=== PATIENT | female | born 1955 | race Caucasian/White ===

== ENCOUNTER 2020-09-06 12:11 | Inpatient (IN) | payer MEDICARE, OTHER ==
[~2020-09-06 12:11] MED LIST: HEPARIN SODIUM 1,000 UN/ML (10ML VL) IV ONE
[2020-09-06] MEDS ORDERED: NITROGLYCERIN SL TABS 0.4 MG TAB SUBLINGUAL STA (12:25)
--- NOTE | 2020-09-06 12:34 | ED ---
Chest Pain HPI - General Chief Complaint: Chest Pain Stated Complaint: Chest Pain Time Seen by Provider: 09/06/20 12:11 Source: patient, EMS, RN notes reviewed Mode of arrival: EMS Limitations: no limitations - History of Present Illness Initial Comments: This is a 64-year-old female with a history of hypothyroidism but no prior history of heart disease who states she was cooking this morning around 10 AM she started developing midsternal chest pain it was sharp in nature radiating to her back and to the left side of her neck. She states she fell he called EMS she was given 4 baby aspirin as a nitroglycerin the pain went from 10/10 down to about 5/10. Nothing seems make the pain better or worse otherwise. No shortness of breath cough chills sweats or other symptoms. MD Complaint: chest pain - Related Data Allergies Allergy/AdvReac Type Severity Reaction Status Date / Time Penicillins Allergy Unknown Verified 09/06/20 12:23 Review of Systems ROS Statement: Those systems with pertinent positive or pertinent negative responses have been documented in the HPI. ROS Other: All systems not noted in ROS Statement are negative. EKG Findings - EKG Results: EKG: interpreted by MARTHA, sinus rhythm (Sinus rhythm a rate of 87. Interval 196 QRS duration 12 QT since QTC of 14/50 to prolonged QT and no definitive acute ST-T wave changes) Past Medical History Past Medical History: Hyperlipidemia, Hypertension, Thyroid Disorder History of Any Multi-Drug Resistant Organisms: None Reported Past Surgical History: Section, Cholecystectomy, Hernia Repair, Orthopedic Surgery Past Psychological History: No Psychological Hx Reported Smoking Status: Never smoker General Exam - General Exam Comments Initial Comments: This is a well-developed obese female who is awake alert oriented 3 Limitations: no limitations General appearance: alert, in no apparent distress Head exam: Present: atraumatic, normocephalic, normal inspection Eye exam: Present: normal appearance, PERRL, EOMI. Absent: scleral icterus, conjunctival injection, periorbital swelling ENT exam: Present: normal exam, mucous membranes moist Neck exam: Present: normal inspection, full ROM, other (No stridor JVD or bruits). Absent: tenderness, meningismus, lymphadenopathy Respiratory exam: Present: normal lung sounds bilaterally. Absent: respiratory distress, wheezes, rales, rhonchi, stridor, chest wall tenderness Cardiovascular Exam: Present: regular rate, normal rhythm, normal heart sounds. Absent: systolic murmur, diastolic murmur, rubs, gallop, clicks GI/Abdominal exam: Present: soft, normal bowel sounds. Absent: distended, tenderness, guarding, rebound, rigid Extremities exam: Present: normal inspection, full ROM, normal capillary refill. Absent: tenderness, pedal edema, joint swelling, calf tenderness Back exam: Present: normal inspection Neurological exam: Present: alert, oriented X3, CN II-XII intact Psychiatric exam: Present: normal affect, normal mood Skin exam: Present: warm, dry, intact, normal color. Absent: rash Course Vital Signs 09/06/20 09/06/20 12:15 13:02 Temperature 97.1 F L Pulse Rate 85 80 Respiratory 18 16 Rate Blood Pressure 147/93 152/95 O2 Sat by Pulse 96 99 Oximetry - Reevaluation(s) Reevaluation #1: 09/06/20 13:14 Repeat EKG shows sinus rhythm 84. Interval to 12 respiration 104 QT since QTC of 460/[address]-T wave no change from the first one Chest Pain MDM - MDM I did review the imaging and report no acute findings. I did discuss findings with patient and with Dr. Abarca who did discuss the case with Dr. Garcia. Patient be admitted for evaluation of chest pain Critical Care Time Critical Care Time: Yes Total Critical Care Time: 31 Critical Care Time: 31 minutes critical care time which includes his presentation with history physical labs x-rays multiple reevaluation the patient discussed with the admitting physician admission orders neck mentation above. Disposition Clinical Impression: Chest pain, Unstable angina pectoris Disposition: ADMITTED IP TO THIS HOSP Condition: Fair Referrals: Casey Arcos DO [Primary Care Provider] - 1-2 days
[2020-09-06 12:36] LABS: Basophils # (A) 0.1 k/uL (0-0.2); Basophils % (A) 1 %; Eosinophils # (A) 0.3 k/uL (0-0.7); Eosinophils % (A) 3 %; HCT 42.1 % (34.0-46.0); HGB 14.4 gm/dL (11.4-16.0); Lymphocytes # (A) 3.1 k/uL (1.0-4.8); Lymphocytes % (A) 30 %; MCH 33.5 pg (25.0-35.0); MCHC 34.2 g/dL (31.0-37.0); Mean Platelet Volume 7.9; Monocytes # (A) 0.4 k/uL (0-1.0); Monocytes % (A) 4 %; Neutrophils # (A) 6.3 k/uL (1.3-7.7); Neutrophils % (A) 61 %; Platelet Count 256 k/uL (150-450); RDW 13.2 % (11.5-15.5); WBC 10.3 k/uL (3.8-10.6)
[2020-09-06] MEDS ORDERED: MORPHINE SULFATE 4 MG/ML SYRINGE IVP STA (12:42)
[2020-09-06 12:46] LABS: ALT 25 U/L (4-34); African American GFR (CKD) >90 (>60 ml/min/1.73 sqM); Albumin 4.4 g/dL (3.5-5.0); Anion Gap 10 mmol/L; Blood Urea Nitrogen 18 mg/dL (7-17); Calcium 9.7 mg/dL (8.4-10.2); Carbon Dioxide 23 mmol/L (22-30); Chloride 104 mmol/L (98-107); Creatine Kinase 54 U/L (30-135); Glucose 268 mg/dL (74-99); Lipase 161 U/L (23-300); Non-African American GFR(CKD) >90 (>60 ml/min/1.73 sqM); Sodium 137 mmol/L (137-145); Total Bilirubin 1.1 mg/dL (0.2-1.3); Total Protein 8.5 g/dL (6.3-8.2)
[2020-09-06 12:48] LABS: D-Dimer 0.4 mg/L FEU (<0.60); INR 0.9 (<1.2); Partial Thromboplastin Time 23.6 sec (22.0-30.0); Prothrombin Time 9.8 sec (9.0-12.0)
[2020-09-06 12:50] LABS: Potassium 4.6 mmol/L (3.5-5.1)
[2020-09-06 12:51] LABS: AST 37 U/L (14-36); Alkaline Phosphatase 151 U/L (38-126); Magnesium 1.7 mg/dL (1.6-2.3)
[2020-09-06] MEDS ORDERED: HEPARIN SODIUM,PORCINE 5,000 UNIT/ML 1 ML VIAL IV PRN (12:55)
[2020-09-06] MEDS ORDERED: NITROGLYCERIN OINT 1 INCH/GM PACKET TOPICAL STA (12:55)
[2020-09-06] MEDS ORDERED: HEPARIN SODIUM,PORCINE 5,000 UNIT/ML 1 ML VIAL IV ONE (12:55)
[2020-09-06] MEDS ORDERED: ATORVASTATIN 80 MG TAB PO STA (12:56)
[2020-09-06] MEDS ORDERED: HEPARIN SOD,PORK IN 0.45% NACL 25,000 UNIT in 0.45% NACL 1 250ML.BAG IV SCH (13:00)
--- NOTE | 2020-09-06 13:06 | XR ---
EXAMINATION TYPE: XR chest 1V portable DATE OF EXAM: 09/06/2020 Comparison: 08/07/2012 Clinical History: 64-year-old female Chest Pain Findings: Heart upper limits of normal in size. Mild patchy right basilar opacity. No other consolidation or pl eural effusion seen. Impression: Mild patchy atelectasis versus early infiltrate at the right base. The former is favored. Clinically correlate.
[2020-09-06] MEDS ORDERED: NITROGLYCERIN SL TABS 0.4 MG TAB SUBLINGUAL PRN (13:15)
[2020-09-06] MEDS: HYDROmorphone 0.5 MG/0.5 ML SYRINGE IVP PRN (15:30)
[2020-09-06] MEDS: METOPROLOL TARTRATE 25 MG TAB PO SCH (18:03)
[2020-09-06] MEDS: NITROGLYCERIN OINT 1 INCH/GM PACKET TOPICAL SCH (18:03)
[2020-09-06] MEDS: SODIUM CHLORIDE 0.9% 1,000 ML IV SCH (21:24)
--- NOTE | 2020-09-06 22:00 | CT ---
EXAM: CT Angiography Chest With Intravenous Contrast CLINICAL HISTORY: ITS.REASON CT Reason: rule out aortic aneurysm TECHNIQUE: Axial computed tomographic angiography images of the chest with intravenous contrast. CTDI is 18.1 mGy and DLP is 1434.2 mGy-cm. This CT exam was performed using one or more of the following dose reduction techniques: automated exposure control, adjustment of the mA and/or kV according to patient size, and/or use of iterative reconstruction technique. MIP reconstructed images were created and reviewed. COMPARISON: Chest x-ray from September 06, 2020 at 1252 hrs. FINDINGS: Pulmonary arteries: The pulmonary arterial tree is well-opacified with contrast. No pulmonary emboli are identified. Aorta: The thoracic aorta is upper normal with the ascending arch measuring up to 3.8 cm. There is no dissection. The descending aorta is nondilated. Lungs: Trace amount of bibasilar subsegmental atelectasis. No acute airspace infiltrate or consolidation. Pleural space: Unremarkable. No significant effusion. No pneumothorax. Heart: The heart size is upper normal. No pericardial effusion is seen. No evidence of RV dysfunction. Bones/joints: Mild to moderate multilevel osteophytosis is seen throughout the thoracic spine. No acute fracture or subluxation is seen. Soft tissues: Unremarkable. Lymph nodes: Unremarkable. No enlarged lymph nodes. Gallbladder and bile ducts: Limited images of the upper abdomen demonstrate previous cholecystectomy. IMPRESSION: The thoracic aorta is upper normal with the ascending arch measuring up to 3.8 cm. There is no dissection. The descending aorta is nondilated. No evidence of pulmonary embolism. No acute airspace infiltrate or consolidation is seen.
--- NOTE | 2020-09-06 22:02 | P.HPIM ---
History of Present Illness This is a pleasant 64 years old female with past medical history of hypertension, hyperlipidemia, hypothyroidism. She is a patient of Dr. Arcos. She Presents because of chest pain which started at 11:00 in the morning as 10/10 in severity o'clock sharp radiating to the back also with some radiation to the left jaw. No associated coughing or dyspnea. No palpitation or dizziness Patient denies smoking, alcohol or illicit drugs. Vitals are stable and patient is afebrile. Labs include an unremarkable CBC, INR, BMP, liver enzymes and lipase. Her d- dimer is negative at 0.40. Chest x-ray: Showed patchy mild right lower lobe atelectasis versus infiltrate EKG showed normal sinus rhythm at 87 bpm with no significant ST T changes, QTC is 542. Patient was already started on heparin drip in the emergency room, also Lipitor and aspirin. She was receiving morphine for pain control which was not good enough so Dilaudid is provided and her chest pain down to 3/10 in severity Review of Systems CONSTITUTIONAL: No fever, no malaise, no fatigue. HEENT: No recent visual problems or hearing problems. Denied any sore throat. CARDIOVASCULAR: No orthopnea, PND, no palpitations, no syncope. PULMONARY: No shortness of breath, no cough, no hemoptysis. GASTROINTESTINAL: No diarrhea, no nausea, no vomiting, no abdominal pain. Normoactive bowel sounds. NEUROLOGICAL: No headaches, no weakness, no numbness. HEMATOLOGICAL: Denies any bleeding or petechiae. GENITOURINARY: Denies any burning micturition, frequency, or urgency. MUSCULOSKELETAL/RHEUMATOLOGICAL: Denies any joint pain, swelling, or any muscle pain. ENDOCRINE: Denies any polyuria or polydipsia. Past Medical History Past Medical History: Hyperlipidemia, Hypertension, Thyroid Disorder History of Any Multi-Drug Resistant Organisms: None Reported Past Surgical History: Section, Cholecystectomy, Hernia Repair, Orthopedic Surgery Past Psychological History: No Psychological Hx Reported Smoking Status: Never smoker Medications and Allergies Home Medications Medication Instructions Recorded Confirmed Type Cholecalciferol [Vitamin D3 (25 1,000 unit PO DAILY 09/06/20 09/06/20 History Mcg = 1000 Iu)] Fish Oil/Dha/Epa [Fish Oil 1,200 1 cap PO DAILY 09/06/20 09/06/20 History mg Fish Oil] Ibuprofen [Motrin Ib] 800 mg PO Q8H PRN 09/06/20 09/06/20 History Levothyroxine Sodium [Synthroid] 50 mcg PO DAILY 09/06/20 09/06/20 History Losartan/Hydrochlorothiazide 1 tab PO DAILY 09/06/20 09/06/20 History [Losartan-Hctz 100-12.5 mg Tab] Simvastatin [Zocor] 20 mg PO HS 09/06/20 09/06/20 History Allergies Allergy/AdvReac Type Severity Reaction Status Date / Time Penicillins Allergy Unknown Verified 09/06/20 13:19 Physical Exam Vitals: Vital Signs Temp Pulse Resp BP Pulse Ox 09/06/20 13:02 80 16 152/95 99 09/06/20 12:15 97.1 F L 85 18 147/93 96 Intake and Output 09/05/20 09/06/20 09/06/20 22:59 06:59 14:59 Other: Weight 145.15 kg GENERAL: The patient is alert and oriented x3, not in any acute distress. Well developed, well nourished. HEENT: Pupils are round and equally reacting to light. EOMI. No scleral icterus. No conjunctival pallor. Normocephalic, atraumatic. No pharyngeal erythema. No thyromegaly. CARDIOVASCULAR: S1 and S2 present. No murmurs, rubs, or gallops. PULMONARY: Chest is clear to auscultation, no wheezing or crackles. ABDOMEN: Soft, nontender, nondistended, normoactive bowel sounds. No palpable organomegaly. MUSCULOSKELETAL: No joint swelling or deformity. EXTREMITIES: No cyanosis, clubbing, or pedal edema. NEUROLOGICAL: Gross neurological examination did not reveal any focal deficits. SKIN: No rashes. No petechiae Results CBC & Chem 7: 09/06/20 12:29 09/06/20 12:29 Labs: Abnormal Lab Results - Last 24 Hours (Table) 09/06/20 Range/Units 12: BUN 18 H (7-17) mg/dL Glucose 268 H (74-99) mg/dL AST 37 H (14-36) U/L Alkaline Phosphatase 151 H (38-126) U/L Total Protein 8.5 H (6.3-8.2) g/dL Assessment and Plan Assessment: Chest pain, rule out cardiac causes. D-dimer is negative Hypertension Hypothyroidism Hyperlipidemia Plan: This is a pleasant 64 years old female who presents with chest pain. Serial troponin. Cardiology consult. Continue with aspirin. Check echocardiogram. Also we will check blood pressure between both sides. Chest x-ray showing heart/mediastinum and the upper limit of normal size. Discussed with the staff about the planned Labs and medication were reviewed.. Continue same treatment. Continue with symptomatic treatment. Resume home medication. Monitor lytes and vitals. DVT and GI prophylaxis. Further recommendations depends on the clinical course of the patient DVT prophylaxis: Patient is already on heparin GI Prophylaxis: Pepcid PT/OT: Pending Prognosis is guarded
[2020-09-06] MEDS ORDERED: IV FLUID CONTINUATION 1,000 ML IV ONE (22:35)
[2020-09-06] MEDS ORDERED: ASPIRIN 325 MG TAB PO ONE (22:38)
[2020-09-06] MEDS ORDERED: MIDAZOLAM 2 MG/2 ML VIAL IVP ONE (22:40)
[2020-09-06] MEDS ORDERED: LIDOCAINE 1% INJ 10MG/ML (20 ML MDV) SQ ONE (22:42)
[2020-09-06] MEDS ORDERED: TICAGRELOR 90 MG TAB PO ONE (23:09)
[2020-09-06] MEDS: NITROGLYCERIN 1000MCG/10ML SYRINGE INTRACORON ONE ×2 (23:15→23:51)
[2020-09-06] MEDS ORDERED: IOPAMIDOL-370 125ML BTL INJ ONE (23:28)
[2020-09-06] MEDS ORDERED: fentaNYL (PF) 50 MCG/ML 2 ML AMP IV ONE (23:30)
[2020-09-06] MEDS ORDERED: IOPAMIDOL-370 100ML BTL INJ ONE (23:55)
[2020-09-07] MEDS ORDERED: ATROPINE SULFATE 0.1 MG/ML 10ML SYRINGE IV PRN (00:01)
[2020-09-07] MEDS ORDERED: MAG HYDROX/AL HYDROX/SIMETH 30 ML CUP PO PRN (00:01)
[2020-09-07] MEDS ORDERED: ZOLPIDEM 5 MG TAB PO PRN (00:01)
[2020-09-07] MEDS ORDERED: RX INFO: IV CONTRAST WAS GIVEN 1 EACH MISC MISCELLANE PRN (00:01)
[2020-09-07] MEDS ORDERED: NITROGLYCERIN SL TABS 0.4 MG TAB SUBLINGUAL PRN (00:01)
--- NOTE | 2020-09-07 00:21 | P.PRCINT ---
Percutaneous Coronary Int. - Percutaneous Coronary Intervention Percutaneous Coronary Intervention: Procedures performed: Left coronary angiography, PCI of mid LAD with 3.0 x 18 mm Xience KURTIS, post dilated with a 4.0 x 8mm NC balloon, kissing balloon of diagonal 1 and LAD with 2.5 x 12mm and 3.5 x 12mm balloons. Procedure performed by: Dr Parminder Pickard DO Indications: Non-STEMI HPI: Patient is a pleasant 64-year-old female who presented with chest pain since this afternoon. Patient was found to have non-STEMI with increasing troponins and persistent chest pain and therefore was taken to the [facility]. A diagnostic heart catheterization was performed by my partner to further assess, please see separate dictation for full details. I was asked to perform intervention to the LAD. Conscious sedation: Conscious sedation was performed under the direct supervion of myself using Versed and Fentanyl for a total of 59 mins. Description of procedure: The risks, benefits and alternatives of heart catheterization and PCI were explained in detail to the patient before the procedure and informed consent was obtained. Patient had diagnostic coronary angiography performed by my partner and was left on the catheterization table. Patient had been prepped and draped in the usual fashion and a 6Fr sheath had been placed in the right femoral artery by my partner. A decision was made to intervene on the LAD. Heparin was given for an ACT greater than 250. A 6Fr CLS 4.0 guide was used to engage the left main. A 0.014 BMW wire was placed in the distal vessel. Next predilation was performed using a 2.5 x 12 mm balloon. The lesion was just at distal edge of the diagonal takeoff and appeared to have some involvement of the distal edge of the diagonal. Therefore the decision was made to stent over the diagonal. A 3.0 x 18 mm Xience KURTIS stent was then placed. The proximal and mid portion of the stent was postdilated with a 4.0 x 8 mm noncompliant balloon. Angiograms were obtained in multiple views. There was "pinching" of the diagonal 1, likely representing shifting plaque however there appeared to be KARLY 2-3 flow and patient was still having chest pain. Therefore the decision was made to perform kissing balloons of the diagonal branch. A second BMW wire was advanced into the diagonal branch. Initial prolonged balloon angioplasty was performed at the diagonal 1 origin with a 2.5 x 12 mm balloon. Finally kissing balloon was performed with a 2.5 x 12 mm balloon in the diagonal 1 branch and a 3.5 x 12 mm balloon in the LAD. Nitroglycerin was given. Pre intervention there was 100 % stenosis and KARLY 0 flow and post intervention there was <10% residual stenosis and KARLY 3 flow and no evidence of any dissection. Patient was noted to be chest pain-free. The wire was then removed and final angiograms were obtained. A right femoral angiogram was performed which showed anatomy unfavorable for closure. The sheath was sutured in place to be pulled on the floor. The patient tolerated the procedure well. The patient was transferred to the post catheterization holding area in stable condition. Conclusions: 1. Successful PCI of mid LAD with 3.0 x 18 mm Xience KURTIS, post dilated with a 4.0 x 8mm NC balloon, kissing balloon of diagonal 1 and LAD with 2.5 x 12mm and 3.5 x 12mm balloons. Plan: 1. Aggressive risk factor modifications per most recent ACC/AHA guidelines. 2. Continue dual antiplatelets for 12 months.
[2020-09-07] MEDS: NITROGLYCERIN OINT 1 INCH/GM PACKET TOPICAL SCH ×2 (00:59→05:14)
[2020-09-07] MEDS: HYDROmorphone 0.5 MG/0.5 ML SYRINGE IVP PRN (03:24)
[2020-09-07] MEDS: SODIUM CHLORIDE 0.9% 1,000 ML IV SCH ×3 (03:27→20:51)
[2020-09-07 08:15] LABS: Basophils % (A) 0 %; Eosinophils # (A) 0.1 k/uL (0-0.7); Eosinophils % (A) 1 %; HCT 37.9 % (34.0-46.0); HGB 12.2 gm/dL (11.4-16.0); Lymphocytes # (A) 2.3 k/uL (1.0-4.8); Lymphocytes % (A) 18 %; MCH 31.8 pg (25.0-35.0); MCHC 32.1 g/dL (31.0-37.0); MCV 98.9 fL (80.0-100.0); Mean Platelet Volume 7.8; Monocytes % (A) 8 %; Neutrophils # (A) 9.1 k/uL (1.3-7.7); Neutrophils % (A) 72 %; Platelet Count 257 k/uL (150-450); RBC 3.84 m/uL (3.80-5.40); RDW 13.7 % (11.5-15.5); WBC 12.6 k/uL (3.8-10.6)
[2020-09-07 08:29] LABS: Cholesterol 188 mg/dL (<200); HDL Cholesterol 47 mg/dL (40-60); LDL Cholesterol,Calculated 110 mg/dL (0-99); Triglycerides 154 mg/dL (<150)
[2020-09-07] MEDS: ASPIRIN 81 MG PO SCH (08:57)
[2020-09-07] MEDS: TICAGRELOR 90 MG TAB PO SCH ×2 (08:57→20:51)
[2020-09-07] MEDS: METOPROLOL TARTRATE 25 MG TAB PO SCH ×2 (08:57→20:52)
[2020-09-07] MEDS ORDERED: ASPIRIN 325 MG TAB PO SCH (09:00)
--- NOTE | 2020-09-07 11:10 | CONS ---
CONSULTATION DATE OF SERVICE: 09/06/2020 CHIEF COMPLAINT: Chest pain. HISTORY OF PRESENT ILLNESS: Marce is a 64-year-old lady who presented to the hospital around 12 o'clock in the afternoon with precordial chest pain. She describes it as a moderate to severe intensity precordial chest pressure that came on at rest with radiation to her jaw and back. Her initial troponin was 0.013. The 2nd troponin was 0.3 and the 3rd troponin around 6:30 in the evening was 3.1. I received a phone call from the nurse taking care of the patient from the floor and informed me of the patient's admission and the consultation around 8 o'clock in the night. The patient at that time was having a CT scan of the chest ordered by the primary care physician to rule out dissection. I asked nurse to activate the rn labor and delivery, given the persistent chest pain and elevated troponins and I saw the patient in the rn labor and delivery for the 1st time. She seemed comfortable at rest and was hemodynamically stable, but still had 3/10 intensity chest pain on heparin and nitrates. The patient's EKG revealed sinus rhythm with nonspecific ST-T wave changes without significant ST-segment elevation. Her clinical presentation is consistent with acute non ST-segment elevation [place]. The patient was advised to undergo cardiac catheterization emergently with a view to performing angioplasty. She had been explained of risks, benefits and alternatives. There is no prior history of coronary artery disease or congestive heart failure. FAMILY HISTORY: Significant for coronary artery disease. HOME MEDICATIONS: Include Zocor, Synthroid, Motrin, vitamin D, and losartan. ALLERGIES: PENICILLIN. PAST MEDICAL HISTORY: Significant for hypertension, hypothyroidism, and dyslipidemia. REVIEW OF SYSTEMS: HEENT is unremarkable. Cardiac as described above, respiratory as described above ,GI negative. Genitourinary negative. Allergy/immunology negative. Skin negative. Musculoskeletal negative. Endocrine negative. Derm negative. Constitutional and oncological negative, [employer]CH[employer] negative. Rest of the system review is not relevant. PHYSICAL EXAM: Afebrile, heart rate is 90 beats per minute. Blood pressure is 108/70, respiratory rate is 18. O2 saturation is 97% on 2 L. There is no jugular venous distention. Chest exam reveals good air entry bilaterally. Heart exam reveals first and second heart sounds. No gallop. No murmur. No rub. Abdomen is soft, nontender. Exam of extremities did not reveal any edema. Peripheral pulses are felt. LABS: Show a hemoglobin of 12.2, platelet count is 257. Potassium is 4.6, creatinine is 0.6. Troponins are elevated. Total cholesterol is 188, LDL is 110. ASSESSMENT: Acute non ST-segment elevation myocardial infarction. PLAN: Patient will undergo emergent cardiac catheterization and will decide on further course of action based on the findings. MMTIFFANIEL / ZHANGN: [id number] /
--- NOTE | 2020-09-07 11:14 | CC ---
CARDIAC CATHETERIZATION REPORT INDICATION: Acute non ST-segment elevation myocardial infarction. PROCEDURE NOTE: After obtaining informed consent, left heart catheterization and coronary angiogram were performed via the right femoral artery using standard Nava catheters. Patient tolerated the procedure well without any obvious immediate complications. This was a technically challenging cardiac catheterization because of difficulties with the hemodynamics. ANESTHESIA: The patient received moderate conscious sedation. Total sedation time was 24 minutes. FINDINGS: HEMODYNAMICS: Left ventricular end-diastolic pressure is around 18 mm. There is no significant gradient across the aortic valve. LEFT VENTRICULOGRAM: Not performed. ANGIOGRAPHIC DATA: Left main coronary artery: Left main coronary artery is a normal-sized vessel and is free of stenosis. Divides into left anterior descending coronary artery and circumflex coronary artery. LAD gives off a large diagonal branch. The mid LAD appeared completely occluded. Circumflex coronary artery and its branches are free of significant stenosis. Right coronary artery shows mild nonobstructive plaque in the proximal portion. CONCLUSIONS: Completely occluded mid left anterior descending. PLAN: Patient will undergo angioplasty with stent placement of the same. MMODL / IJN: [id number] /
--- NOTE | 2020-09-07 11:37 | P.PN ---
Objective - Vital Signs Vital signs: Vital Signs Temp 98.0 F 09/07/20 04:15 Pulse 91 09/07/20 05:15 Resp 18 09/07/20 05:15 BP 108/71 09/07/20 05:15 Pulse Ox 97 09/07/20 09:37 Intake & Output 09/06/20 09/07/20 09/07/20 18:59 06:59 18:59 Intake Total 240 322.216 Balance 240 322.216 Weight 145.15 kg Intake: IV 200 Intake, IV Titration 122.216 Amount Heparin Sod,Pork in 0.45% 122.216 NaCl 25,000 unit In 0.45 % NaCl 1 250ml.bag @ 6.89 UNITS/KG/HR 10.001 mls/ hr IV .Q24H [facility] Rx#: [id number] Oral 240 Other: Voiding Method Bedpan # Voids 1 - Labs CBC & Chem 7: 09/07/20 07:01 09/06/20 12:29 Labs: Abnormal Lab Results - Last 24 Hours (Table) 09/06/20 09/06/20 09/06/20 Range/Units 12:29 14:45 18:36 WBC (3.8-10.6) k/uL Neutrophils # (1.3-7.7) k/uL APTT 50.4 H (22.0-30.0) sec BUN 18 H (7-17) mg/dL Glucose 268 H (74-99) mg/dL AST 37 H (14-36) U/L Alkaline Phosphatase 151 H (38-126) U/L Troponin I 0.338 H* (0.000-0.034) ng/mL Total Protein 8.5 H (6.3-8.2) g/dL Triglycerides (<150) mg/dL LDL Cholesterol, Calc (0-99) mg/dL 09/06/20 09/07/20 09/07/20 Range/Units 18:36 07:01 07:01 WBC 12.6 H (3.8-10.6) k/uL Neutrophils # 9.1 H (1.3-7.7) k/uL APTT (22.0-30.0) sec BUN (7-17) mg/dL Glucose (74-99) mg/dL AST (14-36) U/L Alkaline Phosphatase (38-126) U/L Troponin I 3.190 H* (0.000-0.034) ng/mL Total Protein (6.3-8.2) g/dL Triglycerides 154 H (<150) mg/dL LDL Cholesterol, Calc 110 H (0-99) mg/dL Assessment and Plan Assessment: None STEMI, status post coronary artery cath and PCI of the LAD mild leukocytosis, reactive Hypertension Hypothyroidism Hyperlipidemia Plan: This is a pleasant 64 years old female who presents with non-STEMI, status post stent placement. Continue with cardiology team recommendation Continue with aspirin and brillinta , importance of compliance is explained for the patient.. Check echocardiogram. Labs and medication were reviewed.. Continue same treatment. Continue with symptomatic treatment. Resume home medication. Monitor lytes and vitals. DVT and GI prophylaxis. Further recommendations depends on the clinical course of the patient DVT prophylaxis: Patient is already on sc heparin GI Prophylaxis: Pepcid
--- NOTE | 2020-09-07 13:05 | PN ---
PROGRESS NOTE Marce is a 74-year-old lady who is admitted to the hospital yesterday with acute non ST-segment elevation GA and underwent cardiac catheterization and angioplasty with an acutely occluded mid LAD. This morning she is doing well and is free of symptoms. EXAM: At rest: Vital signs are stable. Chest exam reveals good air entry bilaterally. Heart exam reveals first and second heart sounds. No murmur. Abdomen is soft. Exam of extremities did not reveal any edema. Groin is free of bleeding, bruit and hematoma. Foot pulses are intact. LABS: Show that the hemoglobin is 12.2, platelet count is 257. Potassium is 4.6, creatinine is 0.6. Lipids show an LDL cholesterol of 110. ASSESSMENT: Acute non ST-segment elevation myocardial infarction status post catheterization and angioplasty of LAD with stent placement. PLAN: Patient is on aspirin, Lopressor 25 b.i.d., nitroglycerin paste, which I am going to stop and Brilinta 90 b.i.d. and I will obtain a 2D echo and if she has LV systolic dysfunction, we will start her on VINEET inhibitor and if she tolerates the VINEET inhibitor well, we will consider adding a small dose of Aldactone also. MMODL / IJN: [id number] /
[2020-09-07] MEDS: HEPARIN SODIUM,PORCINE 5,000 UNIT/ML 1 ML VIAL SQ SCH ×2 (13:07→20:51)
[2020-09-07 13:24] LABS: Hemoglobin A1C 7.4 % (4.0-6.0)
--- NOTE | 2020-09-07 15:37 | ECHOF ---
Referral Reason:post-cath MEASUREMENTS -------- HEIGHT: 167.6 cm WEIGHT: 145.1 kg BP: 108/71 RVIDd: 3.4 cm (< 3.3) IVSd: 1.4 cm (0.6 - 1.1) LVIDd: 4.3 cm (3.9 - 5.3) LVPWd: 1.4 cm (0.6 - 1.1) IVSs: 1.6 cm LVIDs: 3.2 cm LVPWs: 1.8 cm LAESV Index (A-L): 19.47 ml/m Ao Diam: 3.1 cm (2.0 - 3.7) AV Cusp: 2.0 cm (1.5 - 2.6) LA Diam: 4.3 cm (2.7 - 3.8) MV EXCURSION: 16.541 mm (> 18.000) MV EF SLOPE: 54 mm/s (70 - 150) EPSS: 0.5 cm MV E Adán: 0.74 m/s MV DecT: 196 ms MV A Adán: 0.98 m/s MV E/A Ratio: 0.76 RAP: 5.00 mmHg RVSP: 33.39 mmHg FINDINGS -------- Sinus rhythm. This was a technically difficult study with suboptimal apical views. Patient is post cardiac catheterization and cannot be in left lateral position. The left ventricular size is normal. There is moderate concentric left ventricular hypertrophy. O verall left ventricular systolic function is mildly impaired with, an EF between 45 - 50 %. Mid ant eroseptal LV wall motion is hypokinetic. Apical lateral LV wall motion is hypokinetic. Apical i nferior LV wall motion is hypokinetic. Apical septum LV wall motion is hypokinetic. The right ventricle is mildly enlarged. Normal LA size by volume 22+/-6 ml/m2. The right atrial size is normal. 5.0mg of Lumason was utilized for enhancement of images Interatrial and interventricular septum intact. There is no evidence of aortic regurgitation. There is no evidence of aortic stenosis. There is trace to mild mitral regurgitation. Mild tricuspid regurgitation present. There is no evidence of pulmonary hypertension. The right v entricular systolic pressure, as measured by Doppler, is 33.39mmHg. There is no pulmonic regurgitation present. The aortic root size is normal. IVC Not well visulized. There is no pericardial effusion. CONCLUSIONS -------- 1. The left ventricular size is normal. 2. There is moderate concentric left ventricular hypertrophy. 3. Overall left ventricular systolic function is mildly impaired with, an EF between 45 - 50 %. 4. Mid anteroseptal LV wall motion is hypokinetic. 5. Apical lateral LV wall motion is hypokinetic. 6. Apical inferior LV wall motion is hypokinetic. 7. Apical septum LV wall motion is hypokinetic. 8. The right ventricle is mildly enlarged. 9. There is trace to mild mitral regurgitation. 10. Mild tricuspid regurgitation present. APPRISE COUNSELOR: Linda Lowe RDCS
[2020-09-08] MEDS: SODIUM CHLORIDE 0.9% 1,000 ML IV SCH ×2 (05:42→16:43)
[2020-09-08] MEDS: HYDROmorphone 0.5 MG/0.5 ML SYRINGE IVP PRN (05:43)
[2020-09-08] MEDS: METOPROLOL TARTRATE 25 MG TAB PO SCH ×2 (09:24→20:18)
[2020-09-08] MEDS: TICAGRELOR 90 MG TAB PO SCH ×2 (09:24→20:18)
[2020-09-08] MEDS: ASPIRIN 81 MG PO SCH (09:24)
[2020-09-08] MEDS: HEPARIN SODIUM,PORCINE 5,000 UNIT/ML 1 ML VIAL SQ SCH ×2 (09:25→20:19)
[2020-09-08 09:35] LABS: Basophils % (A) 0 %; Eosinophils # (A) 0.3 k/uL (0-0.7); Eosinophils % (A) 3 %; HCT 32.7 % (34.0-46.0); HGB 10.9 gm/dL (11.4-16.0); Lymphocytes # (A) 2.7 k/uL (1.0-4.8); Lymphocytes % (A) 29 %; MCH 32.7 pg (25.0-35.0); MCHC 33.4 g/dL (31.0-37.0); MCV 97.9 fL (80.0-100.0); Mean Platelet Volume 7.7; Monocytes # (A) 0.5 k/uL (0-1.0); Monocytes % (A) 6 %; Neutrophils # (A) 5.5 k/uL (1.3-7.7); Neutrophils % (A) 60 %; Platelet Count 215 k/uL (150-450); RBC 3.34 m/uL (3.80-5.40); RDW 13.5 % (11.5-15.5); WBC 9.2 k/uL (3.8-10.6)
[2020-09-08 09:44] LABS: African American GFR (CKD) >90 (>60 ml/min/1.73 sqM); Anion Gap 3 mmol/L; Blood Urea Nitrogen 13 mg/dL (7-17); Calcium 8.6 mg/dL (8.4-10.2); Carbon Dioxide 28 mmol/L (22-30); Chloride 105 mmol/L (98-107); Glucose 208 mg/dL (74-99); Non-African American GFR(CKD) >90 (>60 ml/min/1.73 sqM); Potassium 3.7 mmol/L (3.5-5.1); Sodium 136 mmol/L (137-145)
--- NOTE | 2020-09-08 12:02 | XR ---
EXAMINATION TYPE: XR chest 2V DATE OF EXAM: 09/08/2020 COMPARISON: 09/06/2020 HISTORY: 64-year-old female congestion and asthma TECHNIQUE: PA and lateral views FINDINGS: Heart upper limits of normal in size. Mild interstitial prominence and mild peribronchial cuffing. No consolidation or pleural effusion. IMPRESSION: Findings may reflect bronchitis or chronic asthma. No focal infiltrate.
--- NOTE | 2020-09-08 12:04 | P.PN ---
Subjective Progress Note Date: 09/08/20 HISTORY OF PRESENT ILLNESS: Patient is status post cardiac catheterization with stent placement to the mid LAD. Patient examined with bedside. She denies chest pain or pressure. She denies shortness of breath. Echocardiogram completed revealed ejection fraction 45-50%. Blood pressure this morning 97/65. Heart rate in the 80s. PHYSICAL EXAM: VITAL SIGNS: Reviewed. GENERAL: Well-developed in no acute distress. NECK: Supple. No JVD or thyromegaly LUNGS: Respirations even and unlabored. Lungs essentially clear to auscultation bilaterally. HEART: Regular rate and rhythm. S1 and S2 heard. EXTREMITIES: Normal range of motion. No clubbing or cyanosis. Peripheral pulses intact. No lower extremity edema. Right groin soft with no hematoma present. Pulse palpable. ASSESSMENT: Non-ST elevated myocardial infarction status post PCI to mid LAD Ischemic cardiomyopathy, EF 45% Hypertension Hyperlipidemia Hypothyroidism PLAN: Continue current cardiac medications Lisinopril 2.5 mg daily Anticipate discharge home tomorrow if patient remains stable Nurse practitioner note has been reviewed by physician. Signing provider agrees with the documented findings, assessment, and plan of care. Objective - Vital Signs Vital signs: Vital Signs Temp 97.8 F 09/08/20 08:00 Pulse 84 09/08/20 08:00 Resp 18 09/08/20 08:00 BP 97/65 09/08/20 08:00 Pulse Ox 97 09/08/20 08:00 Intake & Output 09/07/20 09/08/20 09/08/20 18:59 06:59 18:59 Intake Total 480 500 240 Balance 480 500 240 Weight 145.15 kg 144.6 kg Intake: Intake, IV Titration 300 Amount Sodium Chloride 0.9% 1, 300 000 ml @ 100 mls/hr IV . Q10H MIRANDA Rx#:[id number] Oral 480 200 240 Other: Voiding Method Bedpan # Voids 3 - Labs CBC & Chem 7: 09/08/20 09:18 09/08/20 09:18 Labs: Abnormal Lab Results - Last 24 Hours (Table) 09/07/20 09/08/20 09/08/20 Range/Units 07:01 09:18 09:18 RBC 3.34 L (3.80-5.40) m/uL Hgb 10.9 L (11.4-16.0) gm/dL Hct 32.7 L (34.0-46.0) % Sodium 136 L (137-145) mmol/L Glucose 208 H (74-99) mg/dL Hemoglobin A1c 7.4 H (4.0-6.0) %
[2020-09-08 12:09] LABS: Glucose,Whole Blood 121 mg/dL (75-99)
[2020-09-08] MEDS ORDERED: predniSONE 20 MG TAB PO STA (12:15)
--- NOTE | 2020-09-08 12:17 | P.PN ---
Subjective History of Present Illness This is a pleasant 64 years old female with past medical history of hypertension, hyperlipidemia, hypothyroidism. She is a patient of Dr. Arcos. She Presents because of chest pain which started at 11:00 in the morning as 10/10 in severity o'clock sharp radiating to the back also with some radiation to the left jaw. No associated coughing or dyspnea. No palpitation or dizziness Patient denies smoking, alcohol or illicit drugs. Vitals are stable and patient is afebrile. Labs include an unremarkable CBC, INR, BMP, liver enzymes and lipase. Her d- dimer is negative at 0.40. Chest x-ray: Showed patchy mild right lower lobe atelectasis versus infiltrate EKG showed normal sinus rhythm at 87 bpm with no significant ST T changes, QTC is 542. 09/07/2020 Patient is a status post PCI and stent placement to the LAD, done urgently last night, this morning patient is feels better with no chest pain. No coughing, no abdominal pain or nausea vomiting. No other complaint Her CTA of the chest was negative for aortic aneurysm Patient was placed on aspirin and brilinta electromyographic technician Echocardiogram is pending Her hemoglobin A1c is elevated at 7.4% and patient was started on the glipizide. 09/08/2020 Patient is awake and alert. No chest pain. She only have some dry cough this morning, she thinks she has some dyspnea but she stated in bed with no tachypnea currently and she was advised to move around. Patient thinks she has asthma exacerbation No other complaint and she tolerates diet well. Hemodynamically stable, blood pressure is 97/65, however electromyographic technician added metoprolol and VINEET inhibitor in view of her low ejection fraction of 45-50% with wall hypokinesia Labs from today looks normal, with normal creatinine is 0.5. Chest x-ray: Showed mild interstitial prominence and mild peribronchial cuffing, findings may reflect bronchitis or chronic asthma. Patient informed about her new diagnosis of diabetes and hemoglobin A1c is 7.4%, she says entrance in the family. Accu-Chek. Patient is started on glipizide small CONSTITUTIONAL: No fever, no malaise, no fatigue. HEENT: No recent visual problems or hearing problems. Denied any sore throat. CARDIOVASCULAR: No orthopnea, PND, no palpitations, no syncope. PULMONARY: No shortness of breath, no cough, no hemoptysis. GASTROINTESTINAL: No diarrhea, no nausea, no vomiting, no abdominal pain. Normoactive bowel sounds. NEUROLOGICAL: No headaches, no weakness, no numbness. Active Medications Generic Name Dose Route Start Last Admin Trade Name Freq PRN Reason Stop Dose Admin Al Hydroxide/Mg Hydroxide 30 ml 09/07/20 00:01 Mag Hydrox/Al Hydrox/Simeth 30 Ml Cup PO Q4HR PRN Heartburn Aspirin 81 mg 09/07/20 09:00 09/08/20 09:24 Aspirin 81 Mg PO 81 mg DAILY MIRANDA Administration Atropine Sulfate 0.5 mg 09/07/20 00:01 Atropine Sulfate 0.1 Mg/Ml 10ml Syringe IV ONCE PRN Symptomatic Bradycardia Budesonide/Formoterol Fumarate 2 puff 09/08/20 12:15 Symbicort 160-4.5 Mcg Inhaler INHALATION RT-BID MIRANDA Glipizide 2.5 mg 09/08/20 07:30 09/08/20 07:09 Glipizide 2.5 Mg Tab PO 2.5 mg AC-BRKFST MIRANDA Administration Heparin Sodium (Porcine) 5,000 unit 09/07/20 10:30 09/08/20 09:25 Heparin Sodium,Porcine 5,000 Unit/Ml 1 Ml Vial SQ 5,000 unit Q12HR MIRANDA Administration Hydromorphone HCl 0.5 mg 09/06/20 15:13 09/08/20 05:43 Hydromorphone 0.5 Mg/0.5 Ml Syringe IVP 0.5 mg Q3HR PRN Administration Pain Sodium Chloride 1,000 mls @ 100 mls/hr 09/06/20 13:15 09/08/20 05:42 Saline 0.9% IV 100 mls/hr .Q10H MIRANDA Administration Insulin Aspart 0 unit 09/08/20 12:30 Insulin Aspart (Novolog) 100 Unit/Ml Vial SQ ACHS [facility] Protocol Lisinopril 2.5 mg 09/08/20 11:00 Lisinopril 2.5 Mg Tab PO DAILY MIRANDA Metoprolol Tartrate 25 mg 09/06/20 18:00 09/08/20 09:24 Metoprolol Tartrate 25 Mg Tab PO 25 mg BID MIRANDA Administration Miscellaneous Information 1 each 09/07/20 00:01 Rx Info: Iv Contrast Was Given 1 Each Misc MISCELLANE 09/09/20 00:01 DAILY PRN Per Protocol Nitroglycerin 0.4 mg 09/06/20 13:15 Nitroglycerin Sl Tabs 0.4 Mg Tab SUBLINGUAL Q5M PRN Chest Pain Nitroglycerin 0.4 mg 09/07/20 00:01 Nitroglycerin Sl Tabs 0.4 Mg Tab SUBLINGUAL Q5M PRN Chest Pain Prednisone 30 mg 09/08/20 12:15 Prednisone 10 Mg Tab PO 09/08/20 12:16 ONCE STA Prednisone 40 mg 09/08/20 12:15 Prednisone 20 Mg Tab PO 09/08/20 12:16 ONCE STA Ticagrelor 90 mg 09/07/20 09:00 09/08/20 09:24 Ticagrelor 90 Mg Tab PO 90 mg BID MIRANDA Administration Zolpidem Tartrate 5 mg 09/07/20 00:01 Zolpidem 5 Mg Tab PO HS PRN Insomnia Objective - Vital Signs Vital signs: Vital Signs Temp 97.8 F 09/08/20 08:00 Pulse 84 09/08/20 08:00 Resp 18 09/08/20 08:00 BP 97/65 09/08/20 08:00 Pulse Ox 97 09/08/20 08:00 Intake & Output 09/07/20 09/08/20 09/08/20 18:59 06:59 18:59 Intake Total 480 500 240 Balance 480 500 240 Weight 145.15 kg 144.6 kg Intake: Intake, IV Titration 300 Amount Sodium Chloride 0.9% 1, 300 000 ml @ 100 mls/hr IV . Q10H MIRANDA Rx#:[id number] Oral 480 200 240 Other: Voiding Method Bedpan # Voids 3 - Exam -GENERAL: The patient is alert and oriented x3, not in any acute distress. Obese HEENT: Pupils are round and equally reacting to light. EOMI. No scleral icterus. No conjunctival pallor. Normocephalic, atraumatic. No pharyngeal erythema. No thyromegaly. CARDIOVASCULAR: S1 and S2 present. No murmurs, rubs, or gallops. PULMONARY: Chest is clear to auscultation, no wheezing or crackles. ABDOMEN: Soft, nontender, nondistended, normoactive bowel sounds. No palpable organomegaly. MUSCULOSKELETAL: No joint swelling or deformity. EXTREMITIES: No cyanosis, clubbing, or pedal edema. NEUROLOGICAL: Gross neurological examination did not reveal any focal deficits. SKIN: No rashes. no petechiae. - Labs CBC & Chem 7: 09/08/20 09:18 09/08/20 09:18 Labs: Abnormal Lab Results - Last 24 Hours (Table) 09/07/20 09/08/20 09/08/20 Range/Units 07:01 09:18 09:18 RBC 3.34 L (3.80-5.40) m/uL Hgb 10.9 L (11.4-16.0) gm/dL Hct 32.7 L (34.0-46.0) % Sodium 136 L (137-145) mmol/L Glucose 208 H (74-99) mg/dL Hemoglobin A1c 7.4 H (4.0-6.0) % Assessment and Plan Assessment: None STEMI, status post coronary artery cath and PCI of the LAD Ischemic cardiomyopathy with ejection fraction of 45-50% New-onset diabetes, patient informed Mild asthma exacerbation, we will start on inhaled and systemic steroids and with bronchodilator mild leukocytosis, reactive. Back to normal Hypertension Hypothyroidism Hyperlipidemia Plan: This is a pleasant 64 years old female who presents with non-STEMI, status post stent placement. Continue with cardiology team recommendation Continue with aspirin and brillinta , importance of compliance is explained for the patient. Continue with the glipizide and Accu-Chek. And inhaled steroids and prednisone. Labs and medication were reviewed.. Continue same treatment. Continue with symptomatic treatment. Resume home medication. Monitor lytes and vitals. DVT and GI prophylaxis. Further recommendations depends on the clinical course of the patient DVT prophylaxis: Patient is already on sc heparin GI Prophylaxis: Pepcid
[2020-09-08] MEDS ORDERED: IPRATROPIUM-ALBUTEROL 3 ML NEB INHALATION PRN (12:18)
[2020-09-08] MEDS: SYMBICORT 160-4.5 MCG INHALER INHALATION SCH ×2 (12:44→19:16)
[2020-09-08] MEDS: INSULIN ASPART (NovoLOG) 100 UNIT/ML VIAL SQ SCH ×3 (12:57→20:18)
[2020-09-08 13:38] VITALS: BMI 51.4
[2020-09-08 17:01] LABS: Glucose,Whole Blood 234 mg/dL (75-99)
[2020-09-08 20:12] LABS: Glucose,Whole Blood 295 mg/dL (75-99)
[2020-09-09 06:20] LABS: Glucose,Whole Blood 149 mg/dL (75-99)
[2020-09-09] MEDS: INSULIN ASPART (NovoLOG) 100 UNIT/ML VIAL SQ SCH ×2 (06:36→12:08)
[2020-09-09] MEDS ORDERED: glipiZIDE 5 MG TAB PO SCH (07:30)
[2020-09-09 07:59] LABS: African American GFR (CKD) >90 (>60 ml/min/1.73 sqM); Anion Gap 6 mmol/L; Blood Urea Nitrogen 11 mg/dL (7-17); Calcium 9.6 mg/dL (8.4-10.2); Carbon Dioxide 26 mmol/L (22-30); Chloride 107 mmol/L (98-107); Glucose 156 mg/dL (74-99); Non-African American GFR(CKD) >90 (>60 ml/min/1.73 sqM); Potassium 3.7 mmol/L (3.5-5.1); Sodium 139 mmol/L (137-145)
[2020-09-09] MEDS: TICAGRELOR 90 MG TAB PO SCH (08:50)
[2020-09-09] MEDS: ASPIRIN 81 MG PO SCH (08:50)
[2020-09-09] MEDS: METOPROLOL TARTRATE 25 MG TAB PO SCH (08:50)
[2020-09-09] MEDS: HEPARIN SODIUM,PORCINE 5,000 UNIT/ML 1 ML VIAL SQ SCH (08:50)
[2020-09-09] MEDS: SYMBICORT 160-4.5 MCG INHALER INHALATION SCH (08:57)
[2020-09-09] MEDS ORDERED: predniSONE 10 MG TAB PO SCH ×2 (09:00)
[2020-09-09 09:36] VITALS: RESP 16; TEMP 97.6
--- NOTE | 2020-09-09 09:39 | P.PN ---
Subjective Progress Note Date: 09/09/20 Principal diagnosis: Coronary artery disease This is a 64-year-old female patient who was admitted to the hospital with chest discomfort and underwent a heart catheterization and stenting of the LAD. The patient was seen today. She is chest pain-free beach she would like to be discharged home. She denies any symptoms of chest pain or chest discomfort or shortness of breath she is on dual antiplatelet therapy but she is not on statin which I'm going to add Lipitor at 80 mg by mouth daily at bedtime. The echocardiogram revealed mildly impaired LV function was EF around 45%. Objective - Vital Signs Vital signs: Vital Signs Temp 97.6 F 09/09/20 08:00 Pulse 89 09/09/20 08:00 Resp 16 09/09/20 08:00 BP 120/71 09/09/20 08:00 Pulse Ox 95 09/09/20 08:00 Intake & Output 09/08/20 09/09/20 09/09/20 18:59 06:59 18:59 Intake Total 1320 600 540 Balance 1320 600 540 Weight 144.6 kg 143.8 kg Intake: Oral 1320 600 540 Other: Voiding Method Bedpan # Voids 4 4 - Constitutional General appearance: Present: no acute distress - Respiratory Respiratory: bilateral: CTA - Cardiovascular Rhythm: regular Heart sounds: normal: S1, S2 - Labs CBC & Chem 7: 09/08/20 09:18 09/09/20 06:46 Labs: Abnormal Lab Results - Last 24 Hours (Table) 09/08/20 09/08/20 09/08/20 Range/Units 09:18 11:56 16:54 Sodium 136 L (137-145) mmol/L Glucose 208 H (74-99) mg/dL POC Glucose (mg/dL) 121 H 234 H (75-99) mg/dL 09/08/20 09/09/20 09/09/20 Range/Units 20:10 06:07 06:46 Sodium (137-145) mmol/L Glucose 156 H (74-99) mg/dL POC Glucose (mg/dL) 295 H 149 H (75-99) mg/dL Assessment and Plan Assessment: Assessment #1 coronary artery disease and status post PCI of the LAD #2 hypertension #3 dyslipidemia Plan #1 continue dual antiplatelet therapy #2 add high intensity statin #3 the patient can be discharged
[2020-09-09 11:56] LABS: Glucose,Whole Blood 110 mg/dL (75-99)
[2020-09-09 12:45] VITALS: BP 129/81; PULSE 80
[2020-09-09] MEDS ORDERED: ATORVASTATIN 80 MG TAB PO SCH (21:00)
--- NOTE | 2020-09-09 22:11 | P.DS ---
Providers Date of admission: 09/07/20 07:52 Attending physician: Kareem Garcia MD Consults: 09/06/20 13:15 Consult Physician Urgent Consulting Provider: Dom Weaver Consult Reason/Comments: Chest pain Do you want consulting provider notified?: Yes 09/07/20 00:01 Consult Physician Routine Consulting Provider: [facility] Consult Reason/Comments: Post Interventional patient Do you want consulting provider notified?: Already Contacted Primary care physician: Casey Arcos Hospital Course: Diagnoses: Non-STEMI, status post coronary artery cath and PCI of the LAD Ischemic cardiomyopathy with ejection fraction of 45-50% New-onset diabetes, patient informed Mild asthma exacerbation, we will start on inhaled and systemic steroids and with bronchodilator mild leukocytosis, reactive. Back to normal Hypertension Hypothyroidism Hyperlipidemia Obesity Hospital course: This is a pleasant 64 years old female with past medical history of hypertension, hyperlipidemia, hypothyroidism. She is a patient of Dr. Arcos. She Presents because of chest pain of one-day duration associated with trending up of troponin. Patient underwent emergent cardiac cath found a significant stenosis in the left anterior descending artery disease status post stent placement by sole tacker, she was started on aspirin and the purulent as well as metoprolol. Her ejection fraction was 45-50% with no significant symptoms and patient was started on VINEET inhibitor by sole tacker team Also patient has no diagnosis of diabetes mellitus with hemoglobin A1c of 7.4%, patient informed and started on glipizide, glucometer prescription is provided at the patient was instructed to check her sugar 4 times a day before each meal and bedtime and to call 911 on come to emergency room if her sugar is less than severity of more than 400, she verbalized understanding and took note of these recommendations and decided to follow-up with them. Her sugar was controlled upon discharge Patient [id number] coughing, with no phlegm, no dyspnea, no wheezing, no basal crepitation, no chest pain upon discharge. Patient was provided with a prescription for cough medicine upon discharge Patient was cleared for discharge by sole tacker Problems and management plan were discussed with the patient and he verbalized understanding and acceptance Patient was found stable and can be discharged home however he needs follow-up as an outpatient. Patient was instructed to follow up with PCP Dr. Arcos within one week and patient agrees. Also patient was instructed to follow up with sole tacker Dr. Weaver in 1-2 weeks [address] air pollution auditor [address]. Grady one week and she agrees to call and make appointment Gen: patient is a AAOx3, no distress CVS: S1-S2, RRR, no murmur Lungs: B/L CTA, no wheezing Abdomen: soft, no distention, no tenderness, positive bowel sounds Extremity: no leg edema or induration Time spent more than 35 minutes Patient Condition at Discharge: Fair Plan - Discharge Summary Discharge Rx Participant: No New Discharge Prescriptions: New Aspirin 81 mg PO DAILY #30 chew Ticagrelor [Brilinta] 90 mg PO BID #60 tab glipiZIDE [Glucotrol] 5 mg PO AC-BRKFST #30 tab Atorvastatin [Lipitor] 80 mg PO HS #30 tab Metoprolol Tartrate [Lopressor] 25 mg PO BID #60 tab Nitroglycerin Sl Tabs [Nitrostat] 0.4 mg SUBLINGUAL Q5M PRN #20 tab PRN Reason: Chest Pain guaiFENesin-DM 100-10MG/5ML [Robitussin DM] 10 ml PO Q6HR PRN #100 ml PRN Reason: Cough Albuterol Inhaler [Ventolin Hfa Inhaler] 1 puff INHALATION RT-QID PRN #2 puff PRN Reason: Shortness Of Breath Or Wheezing lisinopriL [Zestril] 2.5 mg PO DAILY #30 tab Continue Simvastatin [Zocor] 20 mg PO HS Levothyroxine Sodium [Synthroid] 50 mcg PO DAILY Ibuprofen [Motrin Ib] 800 mg PO Q8H PRN PRN Reason: Pain Fish Oil/Dha/Epa [Fish Oil 1,200 mg Fish Oil] 1 cap PO DAILY Cholecalciferol [Vitamin D3 (25 Mcg = 1000 Iu)] 1,000 unit PO DAILY Losartan/Hydrochlorothiazide [Losartan-Hctz 100-12.5 mg Tab] 1 tab PO DAILY Discharge Medication List Cholecalciferol [Vitamin D3 (25 Mcg = 1000 Iu)] 1,000 unit PO DAILY 09/06/20 [History] Fish Oil/Dha/Epa [Fish Oil 1,200 mg Fish Oil] 1 cap PO DAILY 09/06/20 [History] Ibuprofen [Motrin Ib] 800 mg PO Q8H PRN 09/06/20 [History] Levothyroxine Sodium [Synthroid] 50 mcg PO DAILY 09/06/20 [History] Losartan/Hydrochlorothiazide [Losartan-Hctz 100-12.5 mg Tab] 1 tab PO DAILY 09/06/20 [History] Simvastatin [Zocor] 20 mg PO HS 09/06/20 [History] Albuterol Inhaler [Ventolin Hfa Inhaler] 1 puff INHALATION RT-QID PRN #2 puff 09/09/20 [Rx] Aspirin 81 mg PO DAILY #30 chew 09/09/20 [Rx] Atorvastatin [Lipitor] 80 mg PO HS #30 tab 09/09/20 [Rx] Metoprolol Tartrate [Lopressor] 25 mg PO BID #60 tab 09/09/20 [Rx] Nitroglycerin Sl Tabs [Nitrostat] 0.4 mg SUBLINGUAL Q5M PRN #20 tab 09/09/20 [Rx] Ticagrelor [Brilinta] 90 mg PO BID #60 tab 09/09/20 [Rx] glipiZIDE [Glucotrol] 5 mg PO AC-BRKFST #30 tab 09/09/20 [Rx] guaiFENesin-DM 100-10MG/5ML [Robitussin DM] 10 ml PO Q6HR PRN #100 ml 09/09/20 [Rx] lisinopriL [Zestril] 2.5 mg PO DAILY #30 tab 09/09/20 [Rx] Follow up Appointment(s)/Referral(s): Molina Grady MD [REFERRING] - 1 Week (air pollution auditor) Casey Arcos DO [Primary Care Provider] - 1-2 days (Wednesday at 9:00 with Irlanda) Dom Weaver MD [STAFF PHYSICIAN] - 2 Weeks (sole tacker ) Patient Instructions/Handouts: Coronary Artery Disease (DC), Right Heart Catheterization (DC), Heart Healthy Diet (DC) Activity/Diet/Wound Care/Special Instructions: Heart healthy diet Activity is restricted until you see your doctor Discharge Disposition: HOME SELF-CARE
== END 2020-09-09 16:14 | disposition home or self-care (01) | DRG 247 ==
LOC: EC 12:11 → 1SOBS 13:15 → 3SCARD 16:30 → OBSVTOIN 09-07 07:52
PROVIDERS: ADMIT Internal Medicine; ATTEND Internal Medicine
PROC: 027034Z Dilation of Coronary Artery, One Artery with Drug-eluting Intraluminal Device, Percutaneous Approach (ICD-10-PCS; principal; 2020-09-07)
PROC: B2111ZZ Fluoroscopy of Multiple Coronary Arteries using Low Osmolar Contrast (ICD-10-PCS; 2020-09-07)
PROC: 4A023N7 Measurement of Cardiac Sampling and Pressure, Left Heart, Percutaneous Approach (ICD-10-PCS; 2020-09-07)
DX: I21.4 Non-ST elevation (NSTEMI) myocardial infarction (principal); J45.901 Unspecified asthma with (acute) exacerbation; Z68.43 Body mass index [BMI] 50.0-59.9, adult; E11.9 Type 2 diabetes mellitus without complications; E03.9 Hypothyroidism, unspecified; E66.9 Obesity, unspecified; E78.5 Hyperlipidemia, unspecified; I10 Essential (primary) hypertension; I25.110 Atherosclerotic heart disease of native coronary artery with unstable angina pectoris; I25.5 Ischemic cardiomyopathy; I25.82 Chronic total occlusion of coronary artery; E07.9 Disorder of thyroid, unspecified; I25.2 Old myocardial infarction; Z79.890 Hormone replacement therapy; Z82.49 Family history of ischemic heart disease and other diseases of the circulatory system; Z98.891 History of uterine scar from previous surgery; Z90.49 Acquired absence of other specified parts of digestive tract; Z98.890 Other specified postprocedural states; Z88.0 Allergy status to penicillin
CPT/HCPCS: 36415; 71045; 71046; 71275; 80048; 80053; 80061; 82550; 83036; 83690; 83735; 83880; 84484; 85025; 85347; 85379; 85610; 85730; 92921; 93005; 93306; 93458; 94640; 94760; 96365; 96375; 99291